=== PATIENT | male | born 1980 | race Two or more races ===

== ENCOUNTER 2021-04-06 11:00 | Outpatient (RCR) | payer OTHER ==
[~2021-04-06 11:00] MED LIST: MELOXICAM7.5 MG PO
== END 2021-04-08 ==
LOC: PT 11:00
PROVIDERS: ATTEND Neurological Surgery
DX: M51.16 Intervertebral disc disorders with radiculopathy, lumbar region (principal); M62.81 Muscle weakness (generalized); M54.5 Low back pain; R29.3 Abnormal posture; M53.86 Other specified dorsopathies, lumbar region

== ENCOUNTER 2021-05-04 10:55 | Outpatient (RCR) | payer OTHER | END 2021-05-09 | LOC: PT 10:55 | PROVIDERS: ATTEND Neurological Surgery | DX: M51.16 Intervertebral disc disorders with radiculopathy, lumbar region (principal); M54.50 Low back pain, unspecified; M62.81 Muscle weakness (generalized); R29.3 Abnormal posture; M53.86 Other specified dorsopathies, lumbar region ==

== ENCOUNTER → 2021-07-01 | Day surgery (SDC) | payer OTHER ==
[~2021-07-01] MED LIST changes: +ATORVASTATIN CA20 MG PO; +BUPIVACAINE 0.25% 30ML SDV ONE; +DEXAMETHASONE SOD PHOS 10 MG/1 ML VIAL ONE; +FENTANYL CITRATE/PF 100MCG/2 ML INJ ONE; +IOPAMIDOL 200 MG/ML 20 ML VIAL IT ONE; +LIDOCAINE HCL 1% 30ML-PF VIAL ONE; +LISINOPRIL10 MG PO; +MIDAZOLAM HCL 2 MG/2 ML VIAL ONE; +POVIDONE IODINE 0.05% 0.05 % ML PO ONE; +PROPOFOL IV EMULSION 10 MG/ML 20 ML VIAL ONE; +PROPRANOLOL HCL10 MG PO
[2021-07-01 07:40] VITALS: BP 120/87
== END | disposition home or self-care (01) ==
LOC: OR 07:14
PROVIDERS: ATTEND Physical Medicine & Rehabilitation Pain Medicine
DX: M54.16 Radiculopathy, lumbar region (principal); Z98.1 Arthrodesis status; G47.33 Obstructive sleep apnea (adult) (pediatric); I10 Essential (primary) hypertension; Z01.810 Encounter for preprocedural cardiovascular examination; Z01.812 Encounter for preprocedural laboratory examination; Z20.822 Contact with and (suspected) exposure to COVID-19; Z79.899 Other long term (current) drug therapy
CPT/HCPCS: 64483; 64484 ×2; 93005; J1100; J2001; J2250; J2704; J3010; Q9967; U0002; 77003